=== PATIENT | female | born 1970 | race Caucasian/White ===

== ENCOUNTER 2019-03-19 07:18 | Outpatient (CLI) | payer BC, SELFPAY ==
[2019-03-19 08:35] LABS: CREATININE 1.18 mg/dL (0.55-1.02); Calculated LDL 150 mg/dL; Cholesterol 247 mg/dL (50-200); Estimated GFR 48.68 (mL/min/1.73m2); HDL Cholesterol 48 mg/dL (40-60); Triglyceride 248 mg/dL (30-150)
== END 2019-03-19 07:38 ==
PROVIDERS: PCP Nurse Practitioner; Visit Provider Nurse Practitioner
DX: Z00.00 Encounter for general adult medical examination without abnormal findings (principal); Z13.220 Encounter for screening for lipoid disorders
CPT/HCPCS: 36415; 80061; 82565

== ENCOUNTER 2019-09-04 13:06 | Outpatient (CLI) | payer BC, SELFPAY ==
--- NOTE | 2019-09-04 09:30 | DI.RAD_ITS ---
EXAM: XR HIP RT COMPLETE AP PELVIS INDICATION: hip injury, [id number], unspecified. COMPARISON: No exams were available for comparison TECHNIQUE: 2D digital imaging was performed. FINDINGS: The joint spaces are well maintained. There is minimal bilateral acetabular spurring. The SI joints and pubic symphysis unremarkable. No soft tissue calcifications are seen. IMPRESSION: Minimal degenerative changes. DATA REPOSITORY: RADIATION DOSE DELIVERED:
--- NOTE | 2019-09-04 09:30 | DI.RAD_ITS ---
CLINICAL HISTORY: [id number], unspecified. COMPARISON: No exams were available for comparison FINDINGS: LUNGS:Clear. No pleural abnormality seen.No pneumothorax. HEART: Normal. MEDIASTINUM: Normal. BONES: No displaced rib fracture is seen. No bony destructive lesion is seen. OTHER FINDINGS: None. IMPRESSION: 1. Unremarkable radiographic appearance of the right ribs. 2. No acute pulmonary findings.
== END 2019-09-04 13:26 ==
PROVIDERS: PCP Nurse Practitioner; Visit Provider Internal Medicine
DX: R07.89 Other chest pain (principal); R07.81 Pleurodynia; M25.551 Pain in right hip
CPT/HCPCS: 71046; 71100; 73502

== ENCOUNTER 2019-12-30 21:01 | Outpatient (REF) | payer BC, SELFPAY ==
[2019-12-30 21:34] LABS: Anion Gap 11.6 mmol/L (3-11); BUN 21 mg/dL (7-18); CO2 24.4 mmol/L (21.0-32.0); Calcium 10.1 mg/dL (8.5-10.1); Chloride 104 mmol/L (98-107); Estimated GFR 43.36 (mL/min/1.73m2); Glucose 93 mg/dL (74-106); Sodium 140 mmol/L (136-145)
== END 2019-12-30 21:21 ==
LOC: LBN 21:01
PROVIDERS: PCP Nurse Practitioner; Visit Provider Nurse Practitioner Family
DX: I10 Essential (primary) hypertension (principal)
CPT/HCPCS: 80048

== ENCOUNTER 2021-02-02 09:09 | Day surgery (SDC) | payer BC, SELFPAY ==
--- NOTE | 2021-02-02 07:40 | W.PM.DSUDISC ---
Discharge Plan Disposition Patient Disposition: HOME Condition: Good Discharge Details Reason For Visit: Left carpal tunnel syndrome Attending Provider: Leonidas Padilla Primary Care Provider: Diana Almeida Home Meds and New Rx's Prescriptions: New hydrocodone-acetaminophen 5-325 mg tablet 1 tab PO Q6H PRN (Reason: severe pain) Qty: 3 RF: 0 ibuprofen 600 mg tablet 600 mg PO TID PRN (Reason: pain) Qty: 60 RF: 0 Continued calcium and magnesium carbonat 520-400 mg tablet 1 tab PO DAILY RF: 0 loratadine 10 mg capsule 10 mg PO DAILY PRNRF: 0 triamcinolone acetonide 0.1 % cream 1 applic Topical BID PRNRF: 0 magnesium carb,citrate,oxide 300 mg magnesium tablet 325 mg PO HS RF: 0 Estroven Nighttime (katelynn-meltn) 112-2 mg tablet 1 tab PO HS RF: 0 coenzyme Q10 [CoQ-10] 100 mg capsule 100 mg PO DAILY RF: 0 losartan 50 mg tablet 50 mg PO DAILY Qty: 90 RF: 4 Vitamins B Complex 1 EACH tablet 1 tab PO DAILY RF: 0 Discharge Instructions Stand Alone Forms: Valerie Ramsey Tunnel Release Referrals: Leonidas Padilla MD [ [facility] STAFF PHYSICIAN] - Activity:: Elevate Remove Dressings/Wound Care:: 48 hours Shower/Bathe:: 48 hours Diet:: As Tolerated Discharge Orders Discharge Orders: Discharge Order (Routine); Ordered 02/02/21 Ordered By: Irina Cummins DS: Diagnosis Discharge Diagnosis (1) Left carpal tunnel syndrome: Status: Acute
[2021-02-02 09:15] VITALS: BP 138/85; PULSE 77; RESP 18; TEMP 36.5; O2SAT 96
--- NOTE | 2021-02-02 09:15 | W.ANESPRE ---
General Info Date of Service Date Performed: 02/02/21 Height: 5 ft 10 in Weight: 89.811 kg Body Mass Index (BMI): 28.4 Surgical Procedure: Operation Date: 02/02/21 11:10 Proposed Procedures Side Surgeon p Wrist ECTR Left Leonidas Padilla MD Meds Allergies and Home Medications Allergies Allergy/AdvReac Type Severity Reaction Status Date / Time tetracycline Allergy Mild HIVES Verified 02/02/21 09:26 erythromycin base Allergy Unknown Verified 02/02/21 09:26 Home Medication Medication Instructions Recorded Vitamins B Complex 1 tab PO DAILY 09/18/13 calcium and magnesium carbonates 1 tab PO DAILY tab 12/30/19 520 mg-400 mg tablet loratadine 10 mg capsule 10 mg PO DAILY PRN 12/30/19 calcium carb and hydrox 112 1 tab PO HS tab 09/22/20 [id number] cohosh-melatonin 2 mg tablet magnesium carb,citrate,oxide 325 mg PO HS tab 09/22/20 triamcinolone acetonide 0.1 % 1 applic TOPICAL BID PRN g 09/22/20 topical cream coenzyme Q10 100 mg capsule 100 mg PO DAILY 11/13/20 losartan 50 mg tablet 50 mg PO DAILY #90 tab 11/13/20 hydrocodone-acetaminophen 1 tab PO Q6H PRN #3 tab 02/02/21 ibuprofen 600 mg PO TID PRN #60 tab 02/02/21 Current Visit Medications: Current Medications Generic Name Dose Route Start Last Admin Trade Name Freq PRN Reason Stop Dose Admin Acetaminophen 650 mg 02/02/21 07:38 Acetaminophen 325 Mg Tab PO Q4H PRN PRN Hydrocodone Bitart/Acetaminophen 0 tab 02/02/21 07:38 Hydrocodone 5/Acetaminophen 325 Tab PO Q3H PRN PRN Pain Ringer's Solution 1,000 mls @ 80 mls/hr 02/02/21 06:00 IV 03/03/21 23:59 INFUSION ERIKA Cefazolin Sodium/Dextrose 2 gm in 50 mls @ 100 mls/hr 02/02/21 06:00 Ancef Duplex IVPB 02/02/21 16:00 PREOP ERIKA IV Miscellaneous Supplies 1 each 02/02/21 06:00 Iv Access IV 03/03/21 23:59 DIRECTED ERIKA Sodium Chloride 0 ml 02/02/21 06:00 Normal Saline Flush 10 Ml Syr IV 03/03/21 23:59 PRN PRN Sodium Chloride 0 ml 02/02/21 06:00 Normal Saline 10 Ml Vial IJ 03/03/21 23:59 DIRECTED PRN Sterile Water 0 ml 02/02/21 06:00 Water,Injection,Sterile 10 Ml Vial IJ 03/03/21 23:59 DIRECTED PRN PFSH Active Problems Active Problems: Problem Status Onset Code Tinnitus of both ears H93.13 Situational depression Snoring R06.83 Right carpal tunnel syndrome G56.01 Left carpal tunnel syndrome G56.02 Trigger finger, right middle finger M65.331 Essential hypertension I10 Medical History Medical History Essential hypertension Hx of fracture of humerus Surgical History Surgical History History of hysterectomy History of surgery on arm fx humerus per pt. plate with multiple screws Tobacco Smoking/Tobacco Use Status: Former Tobacco Use Passive smoking exposure: Yes Alcohol Alcohol Intake: current Alcohol intake frequency: a few times a week Alcohol type: beer, wine and hard liquor Substance Use Substance use: Never Substance use type: does not use Vital Signs and Lab Results Lab Results Blood Type / Crossmatch: No Data to Display Complete Blood Count: No Data to Display Complete Metabolic Panel: No Data to Display Liver Function Panel: No Data to Display Coagulation Panel: No Data to Display Cardiac Panel: No Data to Display Arterial Blood Gas: No Data to Display Venous Blood Gas: No Data to Display Pancreas Panel: No Data to Display Thyroid Panel: No Data to Display Infectious Disease: No Data to Display Blood Cultures: No Data to Display Toxicology Panel: No Data to Display Panel: No Data to Display Anesthesia Assessment and Plan Anesthesia History Personal History: No History of Anesthesia Complications Family History: No Family History of Anesthesia Complications Exercise Tolerance Exercise Tolerance: Metabolic Equivalents>4 Pertinent Negatives Pertinent Negatives: No Symptoms of GERD Cardiac & Pulmonary Exam Cardiac Exam: Normal S1/S2 Heart Sounds Pulmonary Exam: Clear Bilateral Breath Sounds Airway Exam Known Difficult Airway: No Mallampati Class: 2 Mouth Opening: Normal (> 3cm) Thyromental Distance: Greater than 3 cm Neck Range of Motion: Full ROM Neck Circumference: Normal Teeth Condition: Normal Dentition ASA Classification ASA Score: ASA 2 Emergency Case?: No NPO Status NPO Status: NPO Clears >2 hours, Solids >8 hours Status Status: History of Hysterectomy Anesthesia Plan Resuscitation Status: Full Code Anesthesia Technique: General Anesthesia Airway Planned: Natural Airway Monitors Used: Standard Monitors
[2021-02-02] MEDS: Lactated Ringers 1,000 ML 80 ML IV (09:35)
[2021-02-02] MEDS: ceFAZolin 2 GM/50 ML BAG IVPB (10:36)
[2021-02-02] MEDS: Sodium Bicarbonate 50 MEQ/50 ML VIAL (10:42)
[2021-02-02 11:00] VITALS: BP 118/77; PULSE 81; RESP 18; TEMP 36.6; O2SAT 94
--- NOTE | 2021-02-02 11:00 | W.ANESPOSTOP ---
Postoperative Evaluation Date, Time and Location Date Performed: 02/02/21 Time Performed: 11:01 Patient Location: Day Surgery Unit Vital Signs Most Recent Imported Vital Signs: Most Recent Vital Signs Temp Pulse Resp BP Pulse Ox 36.5 C 77 18 138/85 96 02/02/21 09:15 02/02/21 09:15 02/02/21 09:15 02/02/21 09:15 02/02/21 09:15 Most Recent Manually Entered Vital Signs: Adult Blood Pressure: 118/77 Heart Rate: 71 Respirations: 16 Oxygen Saturation (%): 94 Temperature (C): 36.6 C Pain Score (0-10 Scale): 0 Assessment Mental Status: Awake (Alert & Oriented to Patient Baseline) Airway and Respiratory Function: Patent airway with normal (patient baseline) respiratory exam Cardiovascular Function: Hemodynamically Stable Hydration Status: Adequately Hydrated Nausea & Vomiting: No Nausea or Vomiting Pain: Pt. Denies Any Pain Peripheral Nerve Block: Patient did not receive a nerve block
[2021-02-02 11:02] VITALS: BP 118/77; PULSE 71; RESP 16; TEMPC 36.6; O2SAT 94
[2021-02-02 11:03] VITALS: BMI 28.4
[2021-02-02 11:30] VITALS: BP 146/97; PULSE 66; RESP 18; TEMP 36.6; O2SAT 94
--- NOTE | 2021-02-02 14:44 | ROE_ITS ---
Date of service: 02/02/21 Time of Service: 11:06 Operative Note Operative Note DATE OF PROCEDURE: 02/02/21 PRE-OP DIAGNOSIS: Left Carpal Tunnel Syndrome POST-OP DIAGNOSIS: same PROCEDURE: Left Endoscopic Carpal Tunnel Release SURGEON: Leonidas Padilla ANESTHESIA TYPE: General:No Airway Refer to Anesthesia Record ESTIMATED BLOOD LOSS: 0 PATHOLOGY: none sent TOURNIQUET TIME: 4 COMPLICATIONS: None Patient was transported to: same day Patient's condition: stable Indications: I have seen Tressa in clinic for symptoms of carpal tunnel syndrome. The numbness, tingling, and pain limited function. Clinical exam findings with nerve conduction tests confirmed the diagnosis of carpal tunnel syndrome. Nonoperative measures such as bracing, time, activity modifications had been tried but disability and pain persisted. I discussed carpal tunnel release with the patient. I reviewed the risks of the procedure to include, but not limited to, bleeding, infection, pain, stiffness, incomplete release, damage to nerves or vessels, persistent numbness, recurrence. Despite these risks, the patient elected to proceed. Findings: There was tightened carpal tunnel. This was dilated and released successfully with the endoscopic with increased space within the tunnel. The a ntebrachial fascia was released proximally freeing the median nerve at the wrist. Procedure Description: Tressa was greeted in the preoperative holding area where the correct side was identified and marked. The consent was reviewed with the patient and signed. The history and physical was updated. All questions were answered. She was taken back to the operating room. The patient was placed into the supine position on the operating room table with the left arm on an arm board. A nonsterile tourniquet was placed high onto the arm. All bony prominences were well padded. Prophylactic antibiotics in the form of Cefazolin were administered. The left arm was then prepped with Chloraprep and draped in a standard fashion with stockinette and extremity drape. A timeout to confirm correct identity, side and site, procedure, allergies, anesthesia, and medical concerns was performed. The surgical site was marked in the volar wrist creases in line with the radial border of the fourth ray. This area was anesthetized with approximately 6cc of 1% Lidocaine. The limb was then exsanguinated with an Esmarch. The skin was incised with a 15 blade, approximately 1cm. The skin only was cut and the deeper tissue was dissected bluntly with a tenotomy scissor, avoiding passing nerve and venous structures. The fascia was penetrated and opened bluntly. A two-prong skin hook was placed under this proximal fascial edge. A series of hamate finders were used to identify and dilate the carpal tunnel. Synovial elevator was used to free synovial attachments to the underside of the transverse carpal ligament. My thumb was kept in the palm to alen the distal extent of the carpal tunnel and correctly position the hand. The [employer]aire endoscope was inserted without difficulty and without resistance. Excellent visualization showed horizontally running fibers of the transverse carpal ligament (TCL). The distal extent of the TCL was visualized and the end of the scope palpated with the thumb. The blade was elevated and withdrawn from distal to proximal. The TCL was split into two flaps. The endoscope was reinserted to confirm complete release and any remnant ligament was incised. The scope was withdrawn and the proximal aspect of the carpal tunnel was grossly inspected and appeared release with the median nerve visible. The antebrachial fascia at the level of the wrist was then freed from the overlying skin and then the underlying median nerve with blunt dissection. This was transected longitudinally for about 3cm proximal to the wrist incision. The wound was then irrigated with easy flow of irrigant distally and proximally. The incision was closed with a single 4-0 Nylon suture. The wound was dressed with Xeroform, Gauze, Kerlix and Darrel. The tourniquet was deflated with the initial dressing and held with some pressure. Blood flow returned easily to all digits with capillary refill less than 2 seconds. The patient tolerated the procedure well and was returned to the Same Day Surgery area in a stable condition suffering no known complication.
== END 2021-02-02 09:10 | disposition home or self-care (01) ==
LOC: SUR 09:10
PROVIDERS: PCP Nurse Practitioner; Visit Provider Student in an Organized Health Care Education/Training Program
PROC: 01N54ZZ Release Median Nerve, Percutaneous Endoscopic Approach (ICD-10-PCS; CPT 29848; principal; 2021-02-02 11:00)
DX: G56.02 Carpal tunnel syndrome, left upper limb (principal); I10 Essential (primary) hypertension
CPT/HCPCS: 29848; J0690; J2001

== ENCOUNTER 2021-02-09 08:04 | Day surgery (SDC) | payer BC, SELFPAY ==
[2021-02-09 08:21] VITALS: BP 148/99; PULSE 72; RESP 16; TEMP 36.4; O2SAT 97
--- NOTE | 2021-02-09 08:36 | W.ANESPRE ---
General Info Date of Service Date Performed: 02/09/21 Height: 5 ft 10 in Weight: 91 kg Body Mass Index (BMI): 28.8 Surgical Procedure: Operation Date: 02/09/21 09:55 Proposed Procedures Side Surgeon p Wrist ECTR Right Leonidas Paidlla MD s Hand Trigger Finger Right Leonidas Padilla MD Meds Allergies and Home Medications Allergies Allergy/AdvReac Type Severity Reaction Status Date / Time tetracycline Allergy Mild HIVES Verified 02/09/21 08:17 erythromycin base Allergy Unknown Hives Verified 02/09/21 08:20 Home Medication Medication Instructions Recorded Vitamins B Complex 1 tab PO DAILY 09/18/13 calcium and magnesium carbonates 1 tab PO DAILY tab 12/30/19 520 mg-400 mg tablet loratadine 10 mg capsule 10 mg PO DAILY PRN 12/30/19 calcium carb and hydrox 112 1 tab PO HS tab 09/22/20 [id number] cohosh-melatonin 2 mg tablet magnesium carb,citrate,oxide 325 mg PO HS tab 09/22/20 triamcinolone acetonide 0.1 % 1 applic TOPICAL BID PRN g 09/22/20 topical cream coenzyme Q10 100 mg capsule 100 mg PO DAILY 11/13/20 losartan 50 mg tablet 50 mg PO DAILY #90 tab 11/13/20 ibuprofen 600 mg PO TID PRN #60 tab 02/02/21 bisacodyl 5 mg tablet,delayed 5 mg PO ONCE #4 tab 02/05/21 release polyethylene glycol 3350 17 gram 255 g PO DAILY #15 ea 02/05/21 oral powder packet Current Visit Medications: Current Medications Generic Name Dose Route Start Last Admin Trade Name Freq PRN Reason Stop Dose Admin Ringer's Solution 1,000 mls @ 80 mls/hr 02/09/21 06:00 IV 03/10/21 23:59 INFUSION ERIKA Cefazolin Sodium 2,000 mg/ 100 mls @ 200 mls/hr 02/09/21 06:00 Sodium Chloride IVPB 02/09/21 16:00 PREOP ERIKA IV Miscellaneous Supplies 1 each 02/09/21 06:00 Iv Access IV 03/10/21 23:59 DIRECTED ERIKA Sodium Chloride 0 ml 02/09/21 06:00 Normal Saline Flush 10 Ml Syr IV 03/10/21 23:59 PRN PRN Sodium Chloride 0 ml 02/09/21 06:00 Normal Saline 10 Ml Vial IJ 03/10/21 23:59 DIRECTED PRN Sterile Water 0 ml 02/09/21 06:00 Water,Injection,Sterile 10 Ml Vial IJ 03/10/21 23:59 DIRECTED PRN PFSH Active Problems Active Problems: Problem Status Onset Code Essential hypertension I10 Medical History Medical History Essential hypertension Hx of fracture of humerus Left carpal tunnel syndrome Right carpal tunnel syndrome Situational depression Snoring Tinnitus of both ears Trigger finger, right middle finger Xanthelasma of left eyelid (09/20/16) Surgical History Surgical History History of carpal tunnel surgery of left wrist History of hysterectomy History of surgery on arm fx humerus per pt. plate with multiple screws Tobacco Smoking/Tobacco Use Status: Former Tobacco Use Passive smoking exposure: Yes Alcohol Alcohol Intake: current Alcohol intake frequency: a few times a week Alcohol type: beer, wine and hard liquor Substance Use Substance use: Never Substance use type: does not use Vital Signs and Lab Results Vital Signs Most Recent Vital Signs in EMR: Most Recent Vital Signs Temp Pulse Resp BP Pulse Ox 36.4 C L 72 16 148/99 H 97 02/09/21 08:21 02/09/21 08:21 02/09/21 08:21 02/09/21 08:21 02/09/21 08:21 Lab Results Blood Type / Crossmatch: No Data to Display Complete Blood Count: No Data to Display Complete Metabolic Panel: No Data to Display Liver Function Panel: No Data to Display Coagulation Panel: No Data to Display Cardiac Panel: No Data to Display Arterial Blood Gas: No Data to Display Venous Blood Gas: No Data to Display Pancreas Panel: No Data to Display Thyroid Panel: No Data to Display Infectious Disease: No Data to Display Blood Cultures: No Data to Display Toxicology Panel: No Data to Display Panel: No Data to Display Anesthesia Assessment and Plan Anesthesia History Personal History: No History of Anesthesia Complications Family History: No Family History of Anesthesia Complications Exercise Tolerance Exercise Tolerance: Metabolic Equivalents>4 Pertinent Negatives Pertinent Negatives: No Symptoms of GERD Cardiac & Pulmonary Exam Cardiac Exam: Normal S1/S2 Heart Sounds Pulmonary Exam: Clear Bilateral Breath Sounds Airway Exam Known Difficult Airway: No Mallampati Class: 2 Mouth Opening: Normal (> 3cm) Thyromental Distance: Greater than 3 cm Neck Range of Motion: Full ROM Neck Circumference: Normal Teeth Condition: Normal Dentition ASA Classification ASA Score: ASA 2 Emergency Case?: No NPO Status NPO Status: NPO Clears >2 hours, Solids >8 hours Status Status: History of Hysterectomy Anesthesia Plan Resuscitation Status: Full Code Anesthesia Technique: General Anesthesia Airway Planned: Natural Airway Monitors Used: Standard Monitors
[2021-02-09 08:41] VITALS: BMI 28.8
[2021-02-09] MEDS: Lactated Ringers 1,000 ML 80 ML IV (08:41)
[2021-02-09] MEDS: ceFAZolin 2,000 MG in Normal Saline 100 ML 200 MG IVPB (09:40)
--- NOTE | 2021-02-09 09:50 | W.PM.DSUDISC ---
Discharge Plan Disposition Patient Disposition: HOME Condition: Good Discharge Details Reason For Visit: R ECTR, RMF trigger release Attending Provider: Loenidas Padilla Primary Care Provider: Diana Almeida Home Meds and New Rx's Prescriptions: New acetaminophen 500 mg capsule 1,000 mg PO Q8H PRN PRNQty: 90 RF: 0 hydrocodone-acetaminophen 5-325 mg tablet 1 tab PO Q6H PRN (Reason: pain) Qty: 6 RF: 0 ibuprofen 600 mg tablet 600 mg PO TID PRN (Reason: pain) Qty: 30 RF: 0 Continued calcium and magnesium carbonat 520-400 mg tablet 1 tab PO DAILY RF: 0 loratadine 10 mg capsule 10 mg PO DAILY PRNRF: 0 triamcinolone acetonide 0.1 % cream 1 applic Topical BID PRNRF: 0 magnesium carb,citrate,oxide 300 mg magnesium tablet 325 mg PO HS RF: 0 Estroven Nighttime (katelynn-meltn) 112-2 mg tablet 1 tab PO HS RF: 0 bisacodyl [Dulcolax (bisacodyl)] 5 mg tablet,delayed release (DR/EC) 5 mg PO ONCE Qty: 4 RF: 0 polyethylene glycol 3350 17 gram powder in packet 255 g PO DAILY Qty: 15 RF: 0 coenzyme Q10 [CoQ-10] 100 mg capsule 100 mg PO DAILY RF: 0 losartan 50 mg tablet 50 mg PO DAILY Qty: 90 RF: 4 Vitamins B Complex 1 EACH tablet 1 tab PO DAILY RF: 0 Discontinued ibuprofen 600 mg tablet 600 mg PO TID PRN (Reason: pain) Qty: 60 RF: 0 Discharge Instructions Stand Alone Forms: Valerie Ramsey Tunnel Release, Valerie TRafa Finger Release Referrals: Leonidas Padilla MD [ [facility]YSICIAN] - Activity:: Activity as Tolerated Remove Dressings/Wound Care:: 48 hours Shower/Bathe:: 48 hours Diet:: As Tolerated Discharge Orders Discharge Orders: Discharge Order (Routine); Ordered 02/09/21 Ordered By: Gio Bradley DS: Diagnosis Discharge Diagnosis (1) Right carpal tunnel syndrome: Status: Acute (2) Trigger finger, right middle finger: Status: Acute
[2021-02-09] MEDS: Sodium Bicarbonate 50 MEQ/50 ML VIAL (10:06)
[2021-02-09 10:13] VITALS: BP 124/79; PULSE 73; RESP 16; TEMP 36.5; O2SAT 97
--- NOTE | 2021-02-09 10:23 | W.ANESPOSTOP ---
Postoperative Evaluation Date, Time and Location Date Performed: 02/09/21 Time Performed: 10:23 Patient Location: Day Surgery Unit Vital Signs Most Recent Imported Vital Signs: Most Recent Vital Signs Temp Pulse Resp BP Pulse Ox 36.5 C 73 16 124/79 97 02/09/21 10:13 02/09/21 10:13 02/09/21 10:13 02/09/21 10:13 02/09/21 10:13 Pain Score Most Recent Pain Score: Most Recent Pain Score Pain Level 0 02/09/21 10:13 Assessment Mental Status: Awake (Alert & Oriented to Patient Baseline) Airway and Respiratory Function: Patent airway with normal (patient baseline) respiratory exam Cardiovascular Function: Hemodynamically Stable Hydration Status: Adequately Hydrated Nausea & Vomiting: No Nausea or Vomiting Pain: Pt. Denies Any Pain Peripheral Nerve Block: Patient did not receive a nerve block
--- NOTE | 2021-02-09 10:36 | W.PM.OP ---
Date of service: 02/09/21 Time of Service: 10:06 Operative Note Operative Note DATE OF PROCEDURE: 02/09/21 PRE-OP DIAGNOSIS: Right Carpal Tunnel Syndrome, Right Middle Finger Trigger Finger POST-OP DIAGNOSIS: same PROCEDURE: Right Endoscopic Carpal Tunnel Release and Right Middle Finger Trigger Release SURGEON: Leonidas Padilla ANESTHESIA TYPE: General:No Airway Refer to Anesthesia Record ESTIMATED BLOOD LOSS: 0 PATHOLOGY: none sent TOURNIQUET TIME: 10 COMPLICATIONS: None Patient was transported to: same day Patient's condition: stable Indications: I have seen Tressa in clinic for symptoms of carpal tunnel syndrome. The numbness, tingling, and pain limited function. Clinical exam findings with nerve conduction tests confirmed the diagnosis of carpal tunnel syndrome. Nonoperative measures such as bracing, time, activity modifications had been tried but disability and pain persisted. I discussed carpal tunnel release with the patient. I reviewed the risks of the procedure to include, but not limited to, bleeding, infection, pain, stiffness, incomplete release, damage to nerves or vessels, persistent numbness, recurrence. Despite these risks, the patient elected to proceed. Findings: There was tightened carpal tunnel. This was dilated and released successfully with the endoscopic with increased space within the tunnel. The antebrachial fascia was released proximally freeing the median nerve at the wrist. The A1 sherron of the right middle finger was released. No tendon damage identified. Procedure Description: Tressa was greeted in the preoperative holding area where the correct side was identified and marked. The consent was reviewed with the patient and signed. The history and physical was updated. All questions were answered. She was taken back to the operating room. The patient was placed into the supine position on the operating room table with the right arm on an arm board. A nonsterile tourniquet was placed high onto the arm. All bony prominences were well padded. Prophylactic antibiotics in the form of Cefazolin were administered. The right arm was then prepped with Chloraprep and draped in a standard fashion with stockinette and extremity drape. A timeout to confirm correct identity, side and site, procedure, allergies, anesthesia, and medical concerns was performed. The surgical site was marked in the volar wrist creases in line with the radial border of the fourth ray along with longitudinally over the A1 sherron of the middle finger MCP joint. The 2 areas were anesthetized with approximately 10cc of 1% Lidocaine with epinephrine and buffered with sodium bicarbonate. The limb was then exsanguinated with an Esmarch. Starting with the carpal tunnel release, the skin was incised with a 15 blade, approximately 1cm. The skin only was cut and the deeper tissue was dissected bluntly with a tenotomy scissor, avoiding passing nerve and venous structures. The fascia was penetrated and opened bluntly. A two-prong skin hook was placed under this proximal fascial edge. A series of hamate finders were used to identify and dilate the carpal tunnel. Synovial elevator was used to free synovial attachments to the underside of the transverse carpal ligament. My thumb was kept in the palm to alen the distal extent of the carpal tunnel and correctly position the hand. The Microaire endoscope was inserted without difficulty and without resistance. Excellent visualization showed horizontally running fibers of the transverse carpal ligament (TCL). The distal extent of the TCL was visualized and the end of the scope palpated with the thumb. The blade was elevated and withdrawn from distal to proximal. The TCL was split into two flaps. The endoscope was reinserted to confirm complete release and any remnant ligament was incised. The scope was withdrawn and the proximal aspect of the carpal tunnel was grossly inspected and appeared release with the median nerve visible. The antebrachial fascia at the level of the wrist was then freed from the overlying skin and then the underlying median nerve with blunt dissection. This was transected longitudinally for about 3cm proximal to the wrist incision. The wound was then irrigated with easy flow of irrigant distally and proximally. The incision was closed with a single 4-0 Nylon suture. Attention was then turned to the trigger finger. A longitudinal 1 cm incision was made overlying the A1 sherron. This was taken down sharply through the skin only. Blunt dissection was carried down through the subcutaneous tissue. Retractors were utilized to mobilize tissue medially and laterally to expose the flexor tendon sheath and the A1 sherron. The proximal edge of the A1 sherron was identified and the scissor was entered into the sherron. The A1 sherron was cut. Was then inspected and there showed to be some bands proximally which were released sharply. I was able to withdraw the tendons out of the hand and inspect them. There is no damage on the tendons. Tendons were returned to the hand and once again inspected for any sites of compression which showed none. The wound was then irrigated. The skin was closed with a 4-0 nylon suture. The wounds were dressed with Xeroform, Gauze, Kerlix and Darrel. The tourniquet was deflated with the initial dressing and held with some pressure. Blood flow returned easily to all digits with capillary refill less than 2 seconds. The patient tolerated the procedure well and was returned to the Same Day Surgery area in a stable condition suffering no known complication.
[2021-02-09 10:50] VITALS: BP 148/94; PULSE 65; RESP 16; TEMP 36.3; O2SAT 100
--- NOTE | 2021-02-09 11:14 | W.ANESPOSTOP ---
Postoperative Evaluation Date, Time and Location Date Performed: 02/09/21 Time Performed: 11:14 Patient Location: Day Surgery Unit Vital Signs Most Recent Imported Vital Signs: Most Recent Vital Signs Temp Pulse Resp BP Pulse Ox 36.3 C L 65 16 148/94 H 100 02/09/21 10:50 02/09/21 10:50 02/09/21 10:50 02/09/21 10:50 02/09/21 10:50 Most Recent Vital Signs Temp Pulse Resp BP Pulse Ox 36.5 C 73 16 124/79 97 02/09/21 10:13 02/09/21 10:13 02/09/21 10:13 02/09/21 10:13 02/09/21 10:13 Pain Score Most Recent Pain Score: Most Recent Pain Score Pain Level 0 02/09/21 10:50 Assessment Mental Status: Awake (Alert & Oriented to Patient Baseline) Airway and Respiratory Function: Patent airway with normal (patient baseline) respiratory exam Cardiovascular Function: Hemodynamically Stable Hydration Status: Adequately Hydrated Nausea & Vomiting: No Nausea or Vomiting Pain: Pt. Denies Any Pain Peripheral Nerve Block: Patient did not receive a nerve block
== END 2021-02-09 11:42 | disposition home or self-care (01) ==
PROVIDERS: PCP Nurse Practitioner; Visit Provider Student in an Organized Health Care Education/Training Program
PROC: 01N54ZZ Release Median Nerve, Percutaneous Endoscopic Approach (ICD-10-PCS; CPT 29848; principal; 2021-02-09 09:45)
DX: G56.01 Carpal tunnel syndrome, right upper limb (principal); M65.311 Trigger thumb, right thumb
CPT/HCPCS: 29848; 26055; J0690; J2704

== ENCOUNTER 2021-04-05 01:51 | Outpatient (CLI) | payer BC, SELFPAY ==
[2021-04-05 10:56] LABS: Source Nasal/Nares
[2021-04-05 15:19] LABS: COVID-19 PCR Negative (Negative)
== END 2021-04-05 01:52 | disposition home or self-care (01) ==
LOC: LBO 01:51
PROVIDERS: PCP Nurse Practitioner; Visit Provider Surgery
DX: Z20.822 Contact with and (suspected) exposure to COVID-19 (principal); Z01.818 Encounter for other preprocedural examination
CPT/HCPCS: 87635

== ENCOUNTER 2021-04-07 08:48 | Day surgery (SDC) | payer BC, SELFPAY ==
--- NOTE | 2021-04-07 06:38 | HPE_ITS ---
Date of service: 04/07/21 Time of Service: 09:14 Assessment and Plan Assessment and plan (1) Encounter for colorectal cancer screening: Status: Acute Assessment and plan: Mrs Anton is a pleasant 50-year-old female who is here today to discuss her first screening colonoscopy. She has no family history of colon cancer. Risks benefits and complications were reviewed with her and she wished to proceed the patient is vaccinated for Covid and will not need a Covid test. Risks, benefits and complications have been reviewed. Complications include but are not limited to bleeding, pain, perforation, missed small lesion/polyp, sore throat, aspiration and adverse reaction to the medications. Questions were entertained and answered to their satisfaction and they wished to proceed. No guarantees were given or implied. Colonoscopy under sedation History of Present Illness Narrative: Mrs Anton is a pleasant 50-year-old female who is here today to discuss a screening colonoscopy. This will be her first colonoscopy. She denies any melena, hematochezia, changes in bowel habits, unintentional weight loss or family history of colon cancer. She does have some infrequent rectal pain after having a bowel movement. She does not describe any constipation when she has the pain. Her past medical history significant for hypertension which is well controlled. She denies any chest pain or shortness of breath. She is able to walk a couple of flights of stairs without any shortness of breath or chest pain. There have been no changes in her health since she was seen in January. She underwent an orthopeadic procedure and did well. Review of Systems Cardiovascular Cardiovascular: Denies chest pain, Denies chest pain at rest, Denies irregular heart rhythm, Denies dyspnea and Denies dyspnea on exertion Respiratory Respiratory: Denies cough, Denies dyspnea and Denies dyspnea on exertion Gastrointestinal Gastrointestinal: Reports as per HPI Genitourinary Genitourinary: Denies dysuria, Denies urinary incontinence and Denies urinary urgency Endocrine Endocrine: Reports system reviewed and no additional complaints, except as documented Hematologic/Lymphatic Hematologic/Lymphatic: Denies easy bruising and Denies lymphadenopathy [facility] Medical History Essential hypertension Hx of fracture of humerus Left carpal tunnel syndrome Situational depression Snoring Tinnitus of both ears Xanthelasma of left eyelid (09/20/16) Surgical History History of carpal tunnel surgery of left wrist 02/02/21 History of hysterectomy History of surgery on arm fx humerus per pt. plate with multiple screws Right carpal tunnel syndrome S/P ECTR: 02/09/2021 Trigger finger, right middle finger S/P Release: 02/09/2021 Family History Mother Aneurysm Stroke Father , 70 Prostate cancer Lung cancer Sister No problems noted. Sister No problems noted. Maternal Grandfather No problems noted. Paternal Grandfather , 60 No problems noted. Maternal Grandmother No problems noted. Paternal Grandmother , 90 Alzheimers disease Son No problems noted. Social History Smoking/Tobacco Use Status: Former Tobacco Use Quit Date: 06/26/86 Smoking risk assessment performed?: Yes Alcohol Intake: current Alcohol Intake frequency: a few times a week Alcohol type: beer, wine and hard liquor Drug use: Never Substance use type: does not use Caregiver/Support person: No Household members: significant other Housing: house Number of Children: 1 Communication Needs: None Do you need help understanding health information?: Never Pets and animals: Yes Pets and animals: cat(s) Sexually active: Yes Do you think of yourself as: straight/heterosexual Current gender identity: female What is your relationship status?: living with partner How often do you talk on the phone with friends or family?: decline to answer How often do you get together with friends or relatives?: decline to answer How often do you attend tenriism or denominational services?: decline to answer Do you belong to any clubs or organized social groups?: decline to answer Panel score (0-1 are the most socially isolated patients): 1 What type of physical activity do you participate in: walking Duration: < 15 minutes/day Frequency: 1-2 times per week Irma/Congregation: No preference Special irma needs: No Seatbelt use: always Helmet use: Yes Helmet use: always Drive intox or ride w/intox line haul driver: No Do you feel safe at home: Yes Do you feel safe in your relationship?: Yes Meds Allergies and Home Medications Allergies Allergy/AdvReac Type Severity Reaction Status Date / Time tetracycline Allergy Mild HIVES Verified 04/07/21 09:14 erythromycin base Allergy Unknown Hives Verified 04/07/21 09:14 Home Medications Medication Instructions Recorded Confirmed Type Vitamins B Complex 1 tab PO DAILY 09/18/13 04/06/21 History calcium and magnesium carbonates 1 tab PO DAILY tab 12/30/19 04/06/21 History 520 mg-400 mg tablet loratadine 10 mg capsule 10 mg PO DAILY PRN 12/30/19 04/06/21 History calcium carb and hydrox 112 1 tab PO HS tab 09/22/20 04/06/21 History cs-[id number]-[id number] cohosh-melatonin 2 mg tablet magnesium carb,citrate,oxide 325 mg PO HS tab 09/22/20 04/06/21 History triamcinolone acetonide 0.1 % 1 applic TOPICAL BID PRN g 09/22/20 04/06/21 History topical cream coenzyme Q10 100 mg capsule 100 mg PO DAILY 11/13/20 04/06/21 History losartan 50 mg tablet 50 mg PO DAILY #90 tab 11/13/20 04/06/21 Rx bisacodyl 5 mg tablet,delayed 5 mg PO ONCE #4 tab 02/05/21 04/06/21 Rx release polyethylene glycol 3350 17 gram 255 g PO DAILY #15 ea 02/05/21 04/06/21 Rx oral powder packet acetaminophen 1,000 mg PO Q8H PRN PRN #90 cap 02/09/21 04/06/21 Rx ibuprofen 600 mg PO TID PRN #30 tab 02/09/21 04/06/21 Rx Exam Const General: healthy appearing and comfortable Resp Effort & Inspection: normal respiratory effort Auscultation: clear to auscultation bilaterally Cardio Rate: regular rate Rhythm: regular rhythm Heart Sounds: no click, no gallops and no murmurs
--- NOTE | 2021-04-07 06:41 | W.COLOREPORT ---
Colonoscopy Report Date of procedure: 04/07/21 Pre-op diagnosis general: Colon Cancer Screening Post-op diagnosis procedure note: same (and diverticulosis) Procedure: Colonoscopy Surgeon: Salena Byrd Anesthesia Type: General:No Airway (Sergey Paredes CRNA) Estimated blood loss (mL): 5 Pathology: none sent Complications: None Disposition: same day Indications: Mrs Anton is a pleasant 50-year-old female who is here today to discuss her first screening colonoscopy. She has no family history of colon cancer. Risks benefits and complications were reviewed with her and she wished to proceed the patient is vaccinated for Covid and will not need a Covid test. Risks, benefits and complications have been reviewed. Complications include but are not limited to bleeding, pain, perforation, missed small lesion/polyp, sore throat, aspiration and adverse reaction to the medications. Questions were entertained and answered to their satisfaction and they wished to proceed. No guarantees were given or implied. Colonoscopy under sedation Prep: Miralax/Dulcolax Procedure Start Time: : Procedure End Time: 10:45 Retraction Time: 12 minutes Findings: sigmoid diverticulosis Procedure Description: After informed consent was obtained the patient was taken to the procedure room and placed in a left decubitous position. Monitors were applied and a time out was done. The patients name, date of , procedure, allergies to medications and metal in their body was reviewed. The patient was then sedated. Once sedated and comfortable a rectal exam was done. External exam was normal. Internal exam revealed a normal sphincter tone and no palpable masses. The scope was then introduced and retro-flexed. No internal hemorrhoids, polyps or masses were identified on retro-flexion. The scope was then advanced to the cecum without difficulty. The ileocecal vlave and appendiceal orifice were identified. The prep was adequate. The scope was then slowly retracted over 12 minutes back into the rectum. There were no polyps. There was moderate sigmoid diverticulosis noted. The scope was removed and the patient was woken up and taken back to Same day surgery in stable condition. The patient tolerated the procedure well and there were no immediate complications. Follow up: The patient should follow up in 10 years unless they develop changes in bowel habits or other new gastrointestinal complaints.
--- NOTE | 2021-04-07 06:42 | W.PM.DSUDISC ---
Discharge Plan Disposition Patient Disposition: HOME Condition: Good Discharge Details Reason For Visit: Colonoscopy Attending Provider: Salena Byrd Primary Care Provider: Diana Almeida Home Meds and New Rx's Prescriptions: Continued calcium and magnesium carbonat 520-400 mg tablet 1 tab PO DAILY RF: 0 loratadine 10 mg capsule 10 mg PO DAILY PRNRF: 0 triamcinolone acetonide 0.1 % cream 1 applic Topical BID PRNRF: 0 magnesium carb,citrate,oxide 300 mg magnesium tablet 325 mg PO HS RF: 0 Estroven Nighttime (katelynn-meltn) 112-2 mg tablet 1 tab PO HS RF: 0 coenzyme Q10 [CoQ-10] 100 mg capsule 100 mg PO DAILY RF: 0 losartan 50 mg tablet 50 mg PO DAILY Qty: 90 RF: 4 Vitamins B Complex 1 EACH tablet 1 tab PO DAILY RF: 0 acetaminophen 500 mg capsule 1,000 mg PO Q8H PRN PRNQty: 90 RF: 0 ibuprofen 600 mg tablet 600 mg PO TID PRN (Reason: pain) Qty: 30 RF: 0 Discontinued bisacodyl [Dulcolax (bisacodyl)] 5 mg tablet,delayed release (DR/EC) 5 mg PO ONCE Qty: 4 RF: 0 polyethylene glycol 3350 17 gram powder in packet 255 g PO DAILY Qty: 15 RF: 0 Discharge Instructions Instructions: Diverticulosis (DC) Additional Instructions: Findings: Diverticulosis Follow up: 10 years Please call if you develop: fevers >101.5 Nausea or Vomiting Abdominal pain that is not transient Rectal bleeding that is more then a tbsp A hard abdomen and inability to pass gas DAY SURGERY UNIT POST ENDOSCOPY INSTRUCTIONS Instructions for everyone who is given Anesthesia: For your safety, please do the following for the next 24 Hours: a. Do not drive or operate dangerous equipment b. Do not drink alcohol beverages or use any recreational drugs for the first 24 hours or while taking pain medications. The medications in your body may have a reaction that can be dangerous. c. Do not make any important decisions or sign any important papers 1. Generally there are no restrictions on your activity after a day or so has gone by, but you may feel a bit fatigued for a few days. 2. After you arrive home you may have a light meal and return to a normal diet as you can tolerate it without feeling sick to your stomach. 3. After surgery, you may feel pain or discomfort. This should be only transient, but if it persists please contact your doctor. 4. If there are any questions regarding the findings of your procedure, please feel free to contact your doctor. 6. If you are unable to contact your doctor with a problem, contact the hospital at [phone]. 7. Continue all your regular medications unless directed otherwise. I understand the above instructions and have no questions. Signature of Patient or Responsible Adult Escort Date/Time Name of Responsible Adult Escort Signature of Nurse Date/Time Activity:: Activity as Tolerated Diet:: high fiber diet Discharge Orders Discharge Orders: Discharge Order (Routine); Ordered 04/07/21 Ordered By: Salena Byrd DS: Diagnosis Discharge Diagnosis (1) Encounter for colorectal cancer screening: Status: Acute
[2021-04-07 09:18] VITALS: BP 129/96; PULSE 78; RESP 18; TEMP 36.2; O2SAT 98
[2021-04-07] MEDS: Lactated Ringers 1,000 ML 80 ML IV (09:18)
--- NOTE | 2021-04-07 09:35 | W.ANESPRE ---
General Info Date of Service Date Performed: 04/07/21 Height: 5 ft 10 in Weight: 87.6 kg Body Mass Index (BMI): 27.7 Surgical Procedure: Operation Date: 04/07/21 10:20 Proposed Procedures Side Surgeon p Colonoscopy Salena Byrd MD Meds Allergies and Home Medications Allergies Allergy/AdvReac Type Severity Reaction Status Date / Time tetracycline Allergy Mild HIVES Verified 04/07/21 09:14 erythromycin base Allergy Unknown Hives Verified 04/07/21 09:14 Home Medication Medication Instructions Recorded Vitamins B Complex 1 tab PO DAILY 09/18/13 calcium and magnesium carbonates 1 tab PO DAILY tab 12/30/19 520 mg-400 mg tablet loratadine 10 mg capsule 10 mg PO DAILY PRN 12/30/19 calcium carb and hydrox 112 1 tab PO HS tab 09/22/20 [id number] cohosh-melatonin 2 mg tablet magnesium carb,citrate,oxide 325 mg PO HS tab 09/22/20 triamcinolone acetonide 0.1 % 1 applic TOPICAL BID PRN g 09/22/20 topical cream coenzyme Q10 100 mg capsule 100 mg PO DAILY 11/13/20 losartan 50 mg tablet 50 mg PO DAILY #90 tab 11/13/20 bisacodyl 5 mg tablet,delayed 5 mg PO ONCE #4 tab 02/05/21 release polyethylene glycol 3350 17 gram 255 g PO DAILY #15 ea 02/05/21 oral powder packet acetaminophen 1,000 mg PO Q8H PRN PRN #90 cap 02/09/21 ibuprofen 600 mg PO TID PRN #30 tab 02/09/21 Current Visit Medications: Current Medications Generic Name Dose Route Start Last Admin Trade Name Jean PRN Reason Stop Dose Admin Hyoscyamine Sulfate 0.125 mg 04/07/21 06:43 Hyoscyamine 0.125 Mg Sl/Oral/Chew SL DIRECTED PRN Ringer's Solution 1,000 mls @ 80 mls/hr 04/07/21 06:00 04/07/21 09:18 IV 04/25/21 23:59 80 mls/hr INFUSION ERIKA Administration IV Miscellaneous Supplies 1 each 04/07/21 06:00 Iv Access IV 04/25/21 23:59 DIRECTED ERIKA Ondansetron HCl 4 mg 04/07/21 06:43 Ondansetron 4 Mg/2 Ml Vial IVP Q4H PRN PRN Nausea / Vomiting Sodium Chloride 0 ml 04/07/21 06:00 Normal Saline Flush 10 Ml Syr IV 04/25/21 23:59 PRN PRN Sodium Chloride 0 ml 04/07/21 06:00 Normal Saline 10 Ml Vial IJ 04/25/21 23:59 DIRECTED PRN Sterile Water 0 ml 04/07/21 06:00 Water,Injection,Sterile 10 Ml Vial IJ 04/25/21 23:59 DIRECTED PRN PFSH Active Problems Active Problems: Problem Status Onset Code Encounter for colorectal cancer screening Z12.11, Z12.12 Trigger finger, right middle finger M65.331 Right carpal tunnel syndrome G56.01 Essential hypertension I10 Medical History Medical History Essential hypertension Hx of fracture of humerus Left carpal tunnel syndrome Situational depression Snoring Tinnitus of both ears Xanthelasma of left eyelid (09/20/16) Surgical History Surgical History History of carpal tunnel surgery of left wrist 02/02/21 History of hysterectomy History of surgery on arm fx humerus per pt. plate with multiple screws Right carpal tunnel syndrome S/P ECTR: 02/09/2021 Trigger finger, right middle finger S/P Release: 02/09/2021 Tobacco Smoking/Tobacco Use Status: Former Tobacco Use Passive smoking exposure: Yes Alcohol Alcohol Intake: current Alcohol intake frequency: a few times a week Alcohol type: beer, wine and hard liquor Substance Use Substance use: Never Substance use type: does not use Vital Signs and Lab Results Vital Signs Most Recent Vital Signs in EMR: Most Recent Vital Signs Temp Pulse Resp BP Pulse Ox 36.2 C L 78 18 129/96 H 98 04/07/21 09:18 04/07/21 09:18 04/07/21 09:18 04/07/21 09:18 04/07/21 09:18 Lab Results Blood Type / Crossmatch: No Data to Display Complete Blood Count: No Data to Display Complete Metabolic Panel: No Data to Display Liver Function Panel: No Data to Display Coagulation Panel: No Data to Display Cardiac Panel: No Data to Display Arterial Blood Gas: No Data to Display Venous Blood Gas: No Data to Display Pancreas Panel: No Data to Display Thyroid Panel: No Data to Display Infectious Disease: Coronavirus (COVID-19)(PCR) Negative (Negative) 04/05/21 09:07 04/05/21 Coronavirus 2019 Source Nasal/Nares 04/05/21 09:07 04/05/21 Blood Cultures: No Data to Display Toxicology Panel: No Data to Display Panel: No Data to Display Anesthesia Assessment and Plan Anesthesia History Personal History: No History of Anesthesia Complications Family History: No Family History of Anesthesia Complications Exercise Tolerance Exercise Tolerance: Metabolic Equivalents>4 Pertinent Negatives Pertinent Negatives: No Symptoms of GERD, No Major Cardiovascular Symptoms or Complaints, No Major Pulmonary Symptoms or Complaints and No History of CVA/TIA Cardiac & Pulmonary Exam Cardiac Exam: Normal S1/S2 Heart Sounds Pulmonary Exam: Clear Bilateral Breath Sounds Airway Exam Known Difficult Airway: No Mallampati Class: 2 Mouth Opening: Normal (> 3cm) Thyromental Distance: Greater than 3 cm Neck Range of Motion: Full ROM Neck Circumference: Normal Teeth Condition: Normal Dentition ASA Classification ASA Score: ASA 2 Emergency Case?: No NPO Status NPO Status: NPO Clears >2 hours, Solids >8 hours Status Status: Negative HCG Anesthesia Plan Resuscitation Status: Full Code Anesthesia Technique: General Anesthesia Airway Planned: Natural Airway Monitors Used: Standard Monitors
[2021-04-07 09:51] VITALS: BMI 27.7
[2021-04-07 10:09] VITALS: BMI 27.7
[2021-04-07 10:52] VITALS: BP 98/71; PULSE 72; RESP 16; TEMP 36.3; O2SAT 96
[2021-04-07 11:24] VITALS: BP 118/89; PULSE 71; RESP 18; TEMP 36.3; O2SAT 97
--- NOTE | 2021-04-07 12:52 | W.ANESPOSTOP ---
Postoperative Evaluation Date, Time and Location Date Performed: 04/07/21 Time Performed: 11:58 Patient Location: Day Surgery Unit Vital Signs Most Recent Imported Vital Signs: Most Recent Vital Signs Temp Pulse Resp BP Pulse Ox 36.3 C L 71 18 118/89 97 04/07/21 11:24 04/07/21 11:24 04/07/21 11:24 04/07/21 11:24 04/07/21 11:24 Pain Score Most Recent Pain Score: Most Recent Pain Score Pain Level 0 04/07/21 11:24 Assessment Mental Status: Awake (Alert & Oriented to Patient Baseline) Airway and Respiratory Function: Patent airway with normal (patient baseline) respiratory exam Cardiovascular Function: Hemodynamically Stable Hydration Status: Adequately Hydrated Nausea & Vomiting: No Nausea or Vomiting Pain: Pt. Denies Any Pain Peripheral Nerve Block: Patient did not receive a nerve block
== END 2021-04-07 12:00 | disposition home or self-care (01) ==
LOC: SUR 08:48
PROVIDERS: PCP Nurse Practitioner; Visit Provider Surgery
PROC: 0DJD8ZZ Inspection of Lower Intestinal Tract, Via Natural or Artificial Opening Endoscopic (ICD-10-PCS; CPT 45378; principal; 2021-04-07 10:15)
DX: Z12.11 Encounter for screening for malignant neoplasm of colon (principal); K57.30 Diverticulosis of large intestine without perforation or abscess without bleeding; I10 Essential (primary) hypertension
CPT/HCPCS: 45378; J2001

== ENCOUNTER 2021-12-10 14:32 | Outpatient (REF) | payer BC, SELFPAY ==
[2021-12-10 14:04] LABS: HCT 38.5 % (36.0-46.0); HGB 13.1 g/dL (11.2-15.7); MCV 91 fL (80-95); MPV 10.7 fL (8.0-11.0); Platelet Count 231 10^3/uL (130-400); RBC 4.23 10^6/uL (3.93-5.22); RDW 13.3 % (11.7-14.6); RDW-SD 43.6 fL
[2021-12-10 14:23] LABS: ALT 51 U/L (14-59); AST 23 U/L (15-37); Albumin 3.9 g/dL (3.4-5.0); Alkaline Phosphatase 118 U/L (46-116); Anion Gap 8.2 mmol/L (3-11); BUN 16 mg/dL (7-18); Bilirubin, Total 0.4 mg/dL (0.2-1.0); CO2 26.8 mmol/L (21.0-32.0); CREATININE 1.2 mg/dL (0.55-1.02); Calcium 9.8 mg/dL (8.5-10.1); Chloride 107 mmol/L (98-107); Estimated GFR 47.18 (mL/min/1.73m2); Glucose 72 mg/dL (74-106); Potassium 4.2 mmol/L (3.5-5.1); Sodium 142 mmol/L (136-145); Total Protein 6.9 g/dL (6.4-8.2)
== END 2021-12-10 14:33 | disposition home or self-care (01) ==
LOC: LBN 14:32
PROVIDERS: PCP Nurse Practitioner; Visit Provider Physician Assistant Medical
DX: R42 Dizziness and giddiness (principal); H61.23 Impacted cerumen, bilateral
CPT/HCPCS: 80053; 85027

== ENCOUNTER 2022-04-12 12:24 | Day surgery (SDC) | payer BC, SELFPAY ==
--- NOTE | 2022-04-12 12:29 | PDOC.DSDIS_ITS ---
Discharge Plan Disposition Patient Disposition: HOME Condition: Good Discharge Details Reason For Visit: Right middle finger flexor tenosynovitis Attending Provider: Leonidas Padilla Primary Care Provider: Diana Almeida Home Meds and New Rx's Prescriptions: New acetaminophen 500 mg tablet 500 mg PO Q6H PRN (Reason: pain) Qty: 60 2RF ibuprofen 600 mg tablet 600 mg PO TID PRN (Reason: pain) Qty: 60 0RF hydrocodone-acetaminophen 5-325 mg tablet 1 tab PO Q6H PRN (Reason: severe pain) Qty: 3 0RF Rx Instructions: Take one tablet up to every 6 hours as needed for severe postoperative pain Continued loratadine 10 mg capsule 10 mg PO DAILY PRN triamcinolone acetonide 0.1 % cream 1 applic Topical BID PRN multivitamin Tablet 1 tab PO DAILY meclizine 25 mg tablet 25 mg PO TID Qty: 30 0RF Rx Instructions: 1-2 tabs as needed for dizziness losartan 100 mg tablet 100 mg PO DAILY Qty: 90 4RF Discontinued acetaminophen 500 mg capsule 1,000 mg PO Q8H PRN PRNQty: 90 0RF ibuprofen 600 mg tablet 600 mg PO TID PRN (Reason: pain) Qty: 30 0RF Discharge Instructions Additional Instructions: Flexor Tenosynovitis Discharge Instructions Activity: You may use your fingers for light activity. You should limit any excessive motion or forceful gripping until the sutures have been removed. Dressings: You should keep the initial surgical dressing in place for at least 3 days. You may remove your dressings and get the wound wet after 3 days. You should keep the dressings and the wound clean at all times. You may keep the initial dressing in place until your follow-up but keep the wound covered with light gauze until the sutures are removed. Medications: - You should take Tylenol and Ibuprofen around the clock as prescribed or per fur matcher's recommendations. - You have Hydrocodone prescribed for breakthrough pain control. Take only as needed and limit use as much as possible. This may cause constipation. Follow-up: 7-10 days for wound check and suture removal. Referrals: Leonidas Padilla MD [ [facility] STAFF PHYSICIAN] - Activity:: Elevate Remove Dressings/Wound Care:: 72 hours Shower/Bathe:: 72 hours Diet:: As Tolerated Discharge Orders Discharge Orders: Discharge Order (Routine); Ordered 04/12/22 Ordered By: Irina Cummins
[2022-04-12 12:34] VITALS: BP 124/94; PULSE 83; RESP 18; TEMP 36.7; O2SAT 95
[2022-04-12] MEDS: Sodium Bicarbonate 50 MEQ/50 ML VIAL (14:25)
[2022-04-12 14:40] VITALS: BP 141/93; PULSE 75; RESP 17; TEMP 37; O2SAT 94
--- NOTE | 2022-04-12 15:54 | W.PM.OP ---
Date of service: 04/12/22 Time of Service: 14:30 Operative Note Operative Note DATE OF PROCEDURE: 04/12/22 PRE-OP DIAGNOSIS: Right Middle Finger Tenosynovitis POST-OP DIAGNOSIS: same PROCEDURE: Tenosynovectomy - Right Middle Finger SURGEON: Leonidas Padilla Refer to Anesthesia Record PATHOLOGY: none sent COMPLICATIONS: None Patient was transported to: same day Patient's condition: stable Indications: I have seen Tressa in clinic for symptoms of stiffness following trigger finger release of the right middle finger. The symptoms had not responded to conservative measures. Given the notable stiffness and the pain, I recommended a tenosynovectomy. I reviewed the risks of the procedure to include, but not limited to, bleeding, infection, pain, stiffness, damage to nerves or vessels, continued catching, recurrence. Despite these risks, the patient elected to proceed. Findings: There was significant scarring overlying the tendons of the RMF with significnat synovitis along the tendons. Procedure Description: Tressa was greeted in the preoperative holding area where the correct side was identified and marked. The consent was reviewed with the patient and signed. All questions were answered. She was taken back to the operating room. The patient was placed into the supine position on the operating room table with the right arm on an arm board. All bony prominences were well padded. No prophylactic antibiotics were administered since this was a clean, elective hand surgical case. The right arm was then prepped with Chloraprep and draped in a standard fashion with stockinette and extremity drape. A timeout to confirm correct identity, side and site, procedure, allergies, anesthesia, and medical concerns was performed. The surgical site was marked as a longitudinal incision directly over the involved digit extending a few mm proximally and distally of the previous incision. This area, overlying the metacarpal head, was then anesthetized with 1% Lidocaine. The patient tolerated this well and once the anesthetic had setup, the procedure began. A longitudinal incision was made through skin only, approximately 1.5cm. The deep tissues were dissected bluntly. There was significant scarring between the skin all the way to the flexor tendons. The flexor tendons were palpated but difficult to visualize given the amount of scarring and synovitis. The scar tissue above the tendons was excised. I then removed the synovitis from around the FDP and FDS tendons. These were inspected proximally and distally. Once all thickened synovitis and scarring was removed, range of motion was tested. The wound was then irrigated and the skin was closed with a 4-0 Nylon. This was dressed with gauze and a Conform dressing. The patient tolerated the procedure well and was returned to the Same Day Surgery area in a stable condition suffering no known complication.
== END 2022-04-12 15:04 | disposition home or self-care (01) ==
PROVIDERS: PCP Nurse Practitioner; Visit Provider Student in an Organized Health Care Education/Training Program
PROC: (CPT 26055; principal; 2022-04-12 15:00)
DX: M65.841 Other synovitis and tenosynovitis, right hand (principal)
CPT/HCPCS: 26145

== ENCOUNTER 2022-11-10 03:12 | Outpatient (CLI) | payer BC, SELFPAY ==
[2022-11-10 07:57] LABS: HCT 40.5 % (36.0-46.0); HGB 14.1 g/dL (11.2-15.7); MCH 30.9 pg (27.0-33.0); MCHC 34.8 % (32.0-36.0); MCV 89 fL (80-95); Platelet Count 212 10^3/uL (130-400); RBC 4.56 10^6/uL (3.93-5.22); RDW 12.8 % (11.7-14.6); RDW-SD 41.7 fL; WBC 8.29 10^3/uL (4.4-10.8)
[2022-11-10 08:52] LABS: ALT 98 U/L (14-59); AST 41 U/L (15-37); Albumin 3.8 g/dL (3.4-5.0); Alkaline Phosphatase 110 U/L (46-116); Anion Gap 8.1 mmol/L (3-11); BUN 20 mg/dL (7-18); Bilirubin, Total 0.3 mg/dL (0.2-1.0); CO2 25.9 mmol/L (21.0-32.0); CREATININE 1.2 mg/dL (0.55-1.02); Calcium 9.6 mg/dL (8.5-10.1); Calculated LDL 98 mg/dL (<100); Chloride 106 mmol/L (98-107); Cholesterol 224 mg/dL (<200); Estimated GFR 54.13 (mL/min/1.73m2); Glucose 106 mg/dL (74-106); HDL Cholesterol 49 mg/dL (40-60); Potassium 4.4 mmol/L (3.5-5.1); Sodium 140 mmol/L (136-145); TSH (W/Ref FT4) 2.45 uIU/mL (0.36-3.74); Total Protein 7.5 g/dL (6.4-8.2); Triglyceride 387 mg/dL (<150)
== END 2022-11-10 03:13 | disposition home or self-care (01) ==
LOC: LBO 03:12
PROVIDERS: PCP Nurse Practitioner Family; Visit Provider Nurse Practitioner Family
DX: I10 Essential (primary) hypertension (principal); R53.83 Other fatigue; R06.83 Snoring; M16.11 Unilateral primary osteoarthritis, right hip; Z00.00 Encounter for general adult medical examination without abnormal findings
CPT/HCPCS: 36415; 80053; 80061; 85027; 84443

== ENCOUNTER 2023-12-26 08:26 | Outpatient (CLI) | payer BC, SELFPAY ==
[2023-12-26 07:55] LABS: Hemoglobin A1C 5.2 % (<5.7)
[2023-12-26 08:43] LABS: ALT 42 U/L (14-59); AST 27 U/L (15-37); Alkaline Phosphatase 111 U/L (46-116); Anion Gap 8.6 mmol/L (3-11); BUN 16 mg/dL (7-18); Bilirubin, Total 0.45 mg/dL (0.2-1.0); CO2 28.4 mmol/L (21.0-32.0); CREATININE 1.3 mg/dL (0.55-1.02); Calcium 10.2 mg/dL (8.5-10.1); Calculated LDL 140 mg/dL (<100); Chloride 104 mmol/L (98-107); Cholesterol 261 mg/dL (<200); Estimated GFR 48.87 (mL/min/1.73m2); Glucose 104 mg/dL (74-106); HDL Cholesterol 53 mg/dL (40-60); Potassium 4.5 mmol/L (3.5-5.1); Sodium 141 mmol/L (136-145); Total Protein 7.9 g/dL (6.4-8.2); Triglyceride 341 mg/dL (<150)
== END 2023-12-26 08:27 | disposition home or self-care (01) ==
LOC: LBO 08:27
PROVIDERS: PCP Nurse Practitioner Family; Visit Provider Nurse Practitioner Family
DX: I10 Essential (primary) hypertension (principal); Z00.00 Encounter for general adult medical examination without abnormal findings
CPT/HCPCS: 36415; 80053; 80061; 83036

== ENCOUNTER 2024-01-30 09:04 | Outpatient (CLI) | payer BC, SELFPAY ==
[2024-01-30 08:17] LABS: Anion Gap 9.3 mmol/L (3-11); BUN 15 mg/dL (7-18); CO2 25.7 mmol/L (21.0-32.0); CREATININE 1.2 mg/dL (0.55-1.02); Calcium 9.7 mg/dL (8.5-10.1); Chloride 105 mmol/L (98-107); Estimated GFR 53.79 (mL/min/1.73m2); Glucose 101 mg/dL (74-106); Potassium 4.4 mmol/L (3.5-5.1); Sodium 140 mmol/L (136-145)
[2024-01-30 17:03] LABS: Ionized Calcium 1.22 mmol/L (1.14-1.35)
[2024-01-30 18:06] LABS: Parathyroid Hormone,Intact 61 pg/mL (19-88)
== END 2024-01-30 09:05 | disposition home or self-care (01) ==
LOC: LBO 09:04
PROVIDERS: PCP Nurse Practitioner Family; Visit Provider Nurse Practitioner Family
DX: E83.52 Hypercalcemia (principal); R79.89 Other specified abnormal findings of blood chemistry; I10 Essential (primary) hypertension
CPT/HCPCS: 36415; 80048; 82330; 83970

== ENCOUNTER 2024-07-22 19:23 | Emergency (ER) | payer BC, SELFPAY ==
[2024-07-22 19:26] VITALS: BP 169/90; PULSE 70; RESP 16; TEMP 36.9; O2SAT 98
[2024-07-22 20:18] VITALS: RESP 16
[2024-07-22 20:42] VITALS: BP 160/88; PULSE 70; RESP 16; O2SAT 98
--- NOTE | 2024-07-22 22:58 | W.ED.GENAD ---
Discharge Plan Disposition Patient Disposition: Home Condition: Stable Discharge Details Clinical Impression: Facial paresthesia Primary Care Provider: Oly Gotti ED Provider: Denis Ruiz Home Meds and New Rx's Prescriptions: No Action loratadine 10 mg capsule 10 mg PO DAILY PRN losartan 100 mg tablet 100 mg PO DAILY Qty: 90 4RF Discharge Instructions Instructions: Paresthesia (DC) Additional Instructions: No signs or symptoms concerning for stroke. If symptoms persist, please follow-up with your PCP for an outpatient MRI If you have any worsening of symptoms, numbness loss of sensation weakness or asymmetry in your face, please return to the emergency department HPI General Date/Time Provider Initiated Documentation: 07/22/24 19:44. Limitations to Documentation: no limitations. Information obtained by: patient. HPI Narrative: 54-year-old female with past medical history of hypertension presents for evaluation of some facial numbness. She reports that she noticed the symptoms a little bit yesterday and then again today. She states that she thought her nose was running and she went to wipe her nose, but there is nothing coming out of her nose and she just felt some abnormal sensation on her upper lip. This area of concern is only located on the right lateral aspect of the upper lip between the nose and the lip, there is no associated drooling speech change facial asymmetry. No associated headache. She reports contacting her primary doctor who referred her to the emergency department patient reports that she wears invisible line and she has been having a very dry mouth.. She has been using some topical spray to help with that. Related Data Home Medications ?Medication ?Instructions ?Recorded ?Confirmed loratadine 10 mg capsule 10 mg PO DAILY PRN 12/30/19 07/22/24 losartan 100 mg tablet 100 mg PO DAILY #90 tabs 07/25/23 07/22/24 Previous Rx's ?Medication ?Instructions ?Recorded losartan 100 mg tablet 100 mg PO DAILY #90 tabs 07/25/23 Allergies Allergy/AdvReac Type Severity Reaction Status Date / Time tetracycline Allergy Mild HIVES Verified 07/22/24 19:29 erythromycin base Allergy Unknown Hives Verified 07/22/24 19:29 General Stated Complaint: GenMedical TIANA: 3 Exam Narrative Exam Narrative: Review of Systems: All systems reviewed & are unremarkable except as noted in HPI and below Well-developed, no acute distress NCAT PERRL, normal conjunctiva Bilateral TMs unremarkable No oral lesions there is Remote cleft lip repair noted RRR Unlabored respiratory effort There is no facial asymmetry, no neurologic deficit, has good strength throughout, on facial examination there is no signs of Sheriff's palsy, no sign of skin change or other infectious etiology. She localizes a spot on her upper lip between the lip margin and the nose that is approximately the size of a nickel that feels different. Course Vital Signs Vital signs: Vital Signs Temperature 36.9 C 07/22/24 19:26 Pulse 70 07/22/24 19:26 Respiratory Rate 16 07/22/24 19:26 Blood Pressure 169/90 H 07/22/24 19:26 Pulse Oximetry 98 07/22/24 19:26 Temperature 36.9 C 07/22/24 19: Pulse 70 07/22/24 20:42 Respiratory Rate 16 07/22/24 20:42 Respiratory Effort Normal, Non-Labored 07/22/24 20:18 Respiratory Depth Normal 07/22/24 20:18 Respiratory Pattern Normal 07/22/24 20:18 Blood Pressure 160/88 H 07/22/24 20:42 Pulse Oximetry 98 07/22/24 20:42 Pain Level 0 07/22/24 19:26 Medical Decision Making Emergent evaluation of paresthesia. On examination, the patient has a nonfocal neurologic evaluation. There is some subjective sensory change in a very small distribution on her exam, but there is no sensation lost. And there is no motor deficit. Discussed the potential etiologies of the symptoms and given the very small area, it is very unlikely that this is secondary to a CVA. She would be out of the window for any sort of thrombolytic therapy. Discussed with the patient and using shared decision making, we will not get a CT scan at this time. If the symptoms persist she may want to follow-up with her PCP and get an MRI as an outpatient. If they worsen, she was advised to return to the emergency department for further evaluation. But at this time she has a nonfocal neurologic exam. Quality:SDOH Health Related Social Needs: Health related social needs details NA PFSH All Active Problems Facial paresthesia (Acute) Atrophy of right kidney (Acute) Seen on renal US 02/16. Elevated serum creatinine (Acute) Hypercalcemia (Acute) Sleep apnea (Acute) Arthritis of right hip (Acute) Flexor tenosynovitis of finger (Acute) S/P tenolysis: 04/12/2022 Dupuytren's contracture of right hand (Acute) Essential hypertension (Chronic) Medical History Encounter for colorectal cancer screening Xanthelasma of left eyelid (09/20/16) Hx of fracture of humerus Left carpal tunnel syndrome Snoring Situational depression Tinnitus of both ears Surgical History Normal colonoscopy (~03/2021) History of carpal tunnel surgery of left wrist 02/02/21 History of surgery on arm fx humerus per pt. plate with multiple screws History of hysterectomy Trigger finger, right middle finger S/P Release: 02/09/2021 Right carpal tunnel syndrome S/P ECTR: 02/09/2021 Family History Mother Aneurysm Stroke Father , 70 Prostate cancer Lung cancer Sister No problems noted. Sister No problems noted. Maternal Grandfather No problems noted. Paternal Grandfather , 60 No problems noted. Maternal Grandmother No problems noted. Paternal Grandmother , 90 Alzheimers disease Son No problems noted. Social History Smoking/Tobacco Use Status: Former Tobacco Use tobacco type: cigarettes Quit Date: 06/26/88 Tobacco: How many years used: 1 Second Hand Exposure: Yes Smoking risk assessment performed?: Yes Alcohol Intake: current Alcohol Intake frequency: a few times a month Alcohol type: beer, wine and hard liquor Drug use: Never Substance use type: does not use Caregiver/Support person: No Household members: significant other Housing: house Number of Children: 1 Communication Needs: None Do you need help understanding health information?: Never Pets and animals: Yes Pets and animals: cat(s) and dog(s) Sexually active: Yes Do you think of yourself as: straight/heterosexual Current gender identity: female What is your relationship status?: living with partner How often do you talk on the phone with friends or family?: twice per week How often do you get together with friends or relatives?: once per week How often do you attend muslim or yarsani services?: 1-3 times per year Do you belong to any clubs or organized social groups?: no Panel score (0-1 are the most socially isolated patients): 2 What type of physical activity do you participate in: yoga Duration: < 15 minutes/day Frequency: 3-4 times per week Irma/Church: Confucianism Special irma needs: No Seatbelt use: always Helmet use: Yes Helmet use: sometimes 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 drop hammer pile driver operator) Drive intox or w/intox drop hammer pile driver operator: rarely Do you feel safe at home: Yes Do you feel safe in your relationship?: Yes
== END 2024-07-22 20:42 | disposition home or self-care (01) ==
PROVIDERS: Emergency Provider Emergency Medicine; PCP Nurse Practitioner Family
DX: I10 Essential (primary) hypertension; Z87.891 Personal history of nicotine dependence
CPT/HCPCS: 99283

== ENCOUNTER 2024-11-07 08:05 | Outpatient (CLI) | payer BC, SELFPAY ==
[2024-11-07 07:56] LABS: HCT 39.6 % (36.0-46.0); HGB 13.8 g/dL (11.2-15.7); MCH 30.9 pg (27.0-33.0); MCHC 34.8 % (32.0-36.0); MCV 89 fL (80-95); MPV 9.8 fL (8.0-11.0); Platelet Count 207 10^3/uL (130-400); RBC 4.46 10^6/uL (3.93-5.22); RDW 12.8 % (11.7-14.6); RDW-SD 41.7 fL; WBC 6.82 10^3/uL (4.4-10.8)
[2024-11-07 08:29] LABS: ALT 26 U/L (14-59); AST 16 U/L (15-37); Albumin 3.9 g/dL (3.4-5.0); Alkaline Phosphatase 105 U/L (46-116); Anion Gap 6.8 mmol/L (3-11); BUN 21 mg/dL (7-18); CO2 27.2 mmol/L (21.0-32.0); CREATININE 1.2 mg/dL (0.55-1.02); Calcium 9.9 mg/dL (8.5-10.1); Calculated LDL 155 mg/dL (<100); Chloride 105 mmol/L (98-107); Cholesterol 248 mg/dL (<200); Estimated GFR 53.46 (mL/min/1.73m2); Glucose 95 mg/dL (74-106); HDL Cholesterol 55 mg/dL (>or=50); Potassium 4.4 mmol/L (3.5-5.1); Sodium 139 mmol/L (136-145); Total Protein 7.5 g/dL (6.4-8.2); Triglyceride 193 mg/dL (<150)
[2024-11-07 08:46] LABS: Bilirubin, Total 0.6 mg/dL (0.2-1.0)
== END 2024-11-07 08:06 | disposition home or self-care (01) ==
LOC: LBO 08:05
PROVIDERS: PCP Nurse Practitioner Family; Visit Provider Nurse Practitioner Family
DX: Z00.00 Encounter for general adult medical examination without abnormal findings (principal); I10 Essential (primary) hypertension; R79.89 Other specified abnormal findings of blood chemistry; G47.30 Sleep apnea, unspecified
CPT/HCPCS: 36415; 80053; 80061; 85027